=== PATIENT | male | born 1995 | race Caucasian/White ===

== ENCOUNTER 2016-06-02 19:15 | Emergency (ER) | payer OTHER ==
[2016-06-07] MEDS ORDERED: NO HOME MEDICATION (08:42)
[2016-06-14] MEDS ORDERED: IBUPROFEN800 M1 PO (08:31)
== END 2016-06-02 21:00 ==
LOC: EDMED 19:15
DX: T23.171A Burn of first degree of right wrist, initial encounter (principal); T23.101A Burn of first degree of right hand, unspecified site, initial encounter; X12.XXXA Contact with other hot fluids, initial encounter; Y92.69 Other specified industrial and construction area as the place of occurrence of the external cause; Y99.0 Civilian activity done for income or pay